=== PATIENT | female | born 1985 | race Caucasian/White ===

== ENCOUNTER 2022-07-21 08:55 | Outpatient (CLI) | payer BC | END 2022-07-21 08:56 | disposition home or self-care (01) | LOC: CSHCT 08:55 | PROVIDERS: ATTEND Psychiatry & Neurology Neurology | DX: G93.2 Benign intracranial hypertension (principal) | CPT/HCPCS: 70450 ==

== ENCOUNTER 2022-09-06 11:37 | Outpatient (CLI) | payer BC | END 2022-09-06 11:38 | disposition home or self-care (01) | LOC: CSHULT 11:37 | PROVIDERS: ATTEND Physician Assistant | DX: R74.8 Abnormal levels of other serum enzymes (principal); K76.0 Fatty (change of) liver, not elsewhere classified; N28.9 Disorder of kidney and ureter, unspecified | CPT/HCPCS: 76705 ==

== ENCOUNTER 2024-03-20 08:50 | Outpatient (CLI) | payer BC | END 2024-03-20 08:51 | disposition home or self-care (01) | LOC: CSHMRI 08:50 | PROVIDERS: ATTEND Nurse Practitioner Family | DX: N28.89 Other specified disorders of kidney and ureter (principal) | CPT/HCPCS: 74183 ==